=== PATIENT | female | born 1980 | race Caucasian/White ===

== ENCOUNTER 2018-12-21 20:11 | Inpatient (IN) | payer SELFPAY ==
[~2018-12-21] VITALS: Ht 152.4 cm; Wt 95.3 kg
[2018-12-21 20:12] VITALS: BP 131/85
--- NOTE | 2018-12-21 20:12 | NUR ---
TO BED # 04 AMBULATORY
--- NOTE | 2018-12-21 20:30 | NUR ---
PT C/O RIGHT LOWER ABDOMINAL SHARP PAIN STARTED UMBILICAL PAIN, NAUSEA AND VOMITING X 5 TIMES SINCE WEDNESDAY , SEEN IN URGENT CARE , R/O APPENDICITIS. DENIES DIARRHEA; SKIN IS PINK/WARM/DRY; AAOX4; PT DENIES ANY FEVER, CP, SOB, OR COUGH AT THIS TIME; PATIENT STATES PAIN OF 10/10 AT THIS TIME; VSS; PATIENT POSITIONED FOR COMFORT; HOB ELEVATED; BEDRAILS UP X1; BED DOWN. ER MD MADE AWARE OF PT STATUS.
--- NOTE | 2018-12-21 20:41 | NUR ---
Dr. Anderson examining patient.
[2018-12-21] MEDS ORDERED: NACL 0.9% 1,000 ML IV ONE (21:24)
[2018-12-21] MEDS ORDERED: ONDANSETRON 4 MG/2 ML VIAL IVP ONE ×2 (21:25→22:15)
[2018-12-21] MEDS ORDERED: MORPHINE SULFATE 4 MG/ML SYR IVP ONE ×2 (21:25→22:15)
[2018-12-21 21:36] LABS: BASOPHILS % (AUTO) 0.4 % (0.0-2.0); EOSINOPHILS # (AUTO) 0.2 K/uL (0-0.4); EOSINOPHILS % (AUTO) 2.5 % (0.0-4.0); HEMATOCRIT 38.3 % (36-48); LYMPHOCYTES # (AUTO) 2.4 K/uL (2.5-16.5); LYMPHOCYTES % (AUTO) 28.7 % (20.5-51.1); MEAN CORPUSCULAR HEMOGLOBIN 24 pg (27-31); MEAN CORPUSCULAR HGB CONC 31 g/dL (33-37); MEAN CORPUSCULAR VOLUME 75.4 fL (80-94); MONOCYTES # (AUTO) 0.6 K/uL (0.8-1.0); MONOCYTES % (AUTO) 7.1 % (1.7-9.3); NEUTROPHILS # (AUTO) 5.2 K/uL (1.8-7.7); NEUTROPHILS % (AUTO) 61.3 % (42.2-75.2); PLATELET COUNT (AUTO) 360 K/uL (140-450); RED BLOOD CELL COUNT(AUTO) 5.07 MIL/uL (4.20-5.40); RED CELL DISTRIBUTION WIDTH 17.4 % (11.6-13.7); WHITE BLOOD COUNT (AUTO) 8.5 K/uL (4.8-10.8)
[2018-12-21 21:46] LABS: ANION GAP 10.4 (8-16); CARBON DIOXIDE 27.9 mmol/L (21-32); CREATININE 0.8 mg/dL (0.6-1.3); POTASSIUM 3.3 mmol/L (3.5-5.1)
[2018-12-21 21:52] LABS: ALBUMIN 4.2 g/dL (3.4-5.0); PROTHROMBIN TIME 9.3 secs (10.8-13.4); TOTAL BILIRUBIN 0.3 mg/dL (0.0-1.0)
--- NOTE | 2018-12-21 22:10 | NUR ---
PT STILL C/O PAIN. ER MD AWARE. ORDERS TO FOLLOW.
[2018-12-21] MEDS ORDERED: KETOROLAC 30 MG/ML VIAL IVP ONE (22:15)
--- NOTE | 2018-12-21 22:41 | NUR ---
PT RETURN FROM CT
[2018-12-21 23:09] LABS: APPEARANCE,URINE SL CLOUDY (CLEAR); BILIRUBIN,URINE NEGATIVE (NEGATIVE); BLOOD, URINE NEGATIVE (NEGATIVE); COLOR,URINE YELLOW (YELLOW); LEUKOCYTE ESTERASE ,URINE 2+ (NEGATIVE); NITRITE, URINE NEGATIVE (NEGATIVE); UGLUCOSE NEGATIVE (NEGATIVE)
[2018-12-21] MEDS ORDERED: diphenhydrAMINE 50 MG/ML VIAL IVP ONE (23:15)
[2018-12-21 23:28] LABS: RBC,URINE 0-5 /HPF (0-5); WBC,URINE 20-60 /HPF (0-5)
--- NOTE | 2018-12-21 23:59 | NUR ---
PT C/O PAIN. PT STATES "CAN I JUST GO HOME? MY PAIN JUST KEEPS COMING BACK." PT TEARFUL, DR. SAUCEDO MADE AWARE.
[2018-12-22] MEDS ORDERED: ASPI-1205 PO
[2018-12-22] MEDS ORDERED: ONDANSETRON 4 MG/2 ML VIAL IVP ONE (00:05)
[2018-12-22] MEDS ORDERED: MORPHINE SULFATE 2 MG/ML SYR IVP PRN (00:05)
[2018-12-22] MEDS ORDERED: ACETAMINOPHEN 325 MG TAB PO PRN (00:05)
[2018-12-22] MEDS ORDERED: DOCUSATE SODIUM 100 MG GELCAP PO PRN (00:05)
[2018-12-22] MEDS ORDERED: HYDROcodone/APAP 5/325 MG 1 TAB TAB PO PRN (00:05)
[2018-12-22] MEDS ORDERED: ZOLPIDEM 5 MG TAB PO PRN (00:05)
[2018-12-22] MEDS ORDERED: KETAMINE 10 MG/ML UD SYR **ER IVP ONE (00:05)
--- NOTE | 2018-12-22 00:40 | NUR ---
RECEIVED FROM ER VIA GURNEY, PT AWAKE, ALERT AND ORIENTED X 4. PT GOT BENADRYL AND KETAMINE, PT A FALL RISK DUE TO SEDATION. WITH R EJ G 20, PATENT AND INTACT
--- NOTE | 2018-12-22 00:41 | NUR ---
PLACED PT COMFORTABLY IN BED. PT REFUSED TO LIE DOWN; PT IN A SITTING POSITION IN BED AT THIS TIME. NO SOB, NO RESPIRATORY DISTRESS; PLACED IN LOW BED; CALL LIGHT WITHIN REACH
[2018-12-22 00:42] LABS: BARBITURATE, URINE NEG. ng/ml (NEG <=200); BENZODIAZEPINE, URINE NEG. ng/mL (NEG <=200); CANNABINOID, URINE NEG. ng/mL (NEG <=50); COCAINE, URINE NEG. ng/mL (NEG <=300); OPIATE, URINE POS. ng/mL (NEG <=2000); PHENCYCLIDINE SCREEN,URINE NEG. ng/mL (NEG <=25)
[2018-12-22 00:44] VITALS: BP 136/74
--- NOTE | 2018-12-22 00:45 | NUR ---
Patient will be admitted to care of DR NASCIMENTO. Admited to MED/SURG. Will go to room 111-B. Belongings list completed. Report to POONAM TURNER.
[2018-12-22 00:47] LABS: MAGNESIUM 2.2 mg/dL (1.8-2.4); PHOSPHORUS 2.7 mg/dL (2.5-4.9)
[2018-12-22] MEDS ORDERED: LORazepam 2 MG/ML VIAL IM/IVP PRN (01:00)
[2018-12-22] MEDS ORDERED: ONDANSETRON 4 MG/2 ML VIAL IM/IVP PRN (01:00)
--- NOTE | 2018-12-22 01:00 | NUR ---
HISTORY AND PHYSICAL ASSESSMENT DONE BY , AND NURSE AT BEDSIDE.
--- NOTE | 2018-12-22 01:16 | NUR ---
PT WANT TO GO TO [facility], INFORMED DR. SELLERS. PT SIGNED [facility] PAPERS AND DR. SELLERS WELL. REASON PER PT, SHE DOES NOT HAVE CAREGIVER/ SOMEONE TO TAKE CARE OF HER KIDS.
[2018-12-22] MEDS ORDERED: CEPH500C16 PO (01:23)
[2018-12-22] MEDS ORDERED: LACT10CA1 PO (01:23)
--- NOTE | 2018-12-22 01:29 | NUR ---
MEN'S BASKETBALL COACH LEXI HICKEY
--- NOTE | 2018-12-22 01:30 | NUR ---
IV TAKEN OUT, AND ID BAND. PT ESCORTED TO THE EXIT VIA WHEELCHAIR.
[2018-12-22] MEDS ORDERED: NACL 0.9% 1,000 ML IV SCH (02:00)
[2018-12-22] MEDS ORDERED: POTASSIUM CHLORIDE 10 MEQ TABER PO ONE (02:00)
[2018-12-22] MEDS ORDERED: LACTOBACILLUS RHAMNOSUS GG 1 EACH CAP PO SCH (09:00)
== END 2018-12-22 01:30 | disposition left against medical advice (07) | DRG 690 ==
LOC: MED 20:11 → MTU 12-22 00:11
PROVIDERS: ADMIT General Practice; ATTEND General Practice
DX: N39.0 Urinary tract infection, site not specified (principal); Z68.41 Body mass index [BMI] 40.0-44.9, adult; E87.6 Hypokalemia; E86.0 Dehydration; E66.9 Obesity, unspecified; K76.9 Liver disease, unspecified; K37 Unspecified appendicitis; Z53.21 Procedure and treatment not carried out due to patient leaving prior to being seen by health care provider; Z66 Do not resuscitate; Z88.0 Allergy status to penicillin; Z79.82 Long term (current) use of aspirin; Z86.718 Personal history of other venous thrombosis and embolism; Z86.711 Personal history of pulmonary embolism; Z90.49 Acquired absence of other specified parts of digestive tract; Z98.51 Tubal ligation status; Z88.8 Allergy status to other drugs, medicaments and biological substances; Z83.3 Family history of diabetes mellitus; Z71.3 Dietary counseling and surveillance
CPT/HCPCS: 36415; 80053; 80305; 81001; 83690; 83735; 84100; 84703; 85025; 85610; 85730; 86886; 86900; 86901; 87040; 87086; 96374; 96375; 96376; 99285; J1200; J1885; J2270; J2405